=== PATIENT | female | born 1965 | race Caucasian/White ===

== ENCOUNTER → 2020-06-03 | Outpatient (CLI) | payer MEDICARE ==
[2020-06-04 08:14] LABS: VITAMIN D, 25-HYDROXY 16.9 ng/mL (30.0-100.0)
[2020-06-04 15:15] LABS: RHEUMATOID ARTHRITIS FACTOR <10.0 IU/mL (0.0-13.9)
[2020-06-08 00:11] LABS: CCP ANTIBODIES IGG/IGA 4 units (0-19)
== END ==
LOC: LAB 13:39
PROVIDERS: Nurse Practitioner Family
DX: D89.9 Disorder involving the immune mechanism, unspecified (principal); M25.50 Pain in unspecified joint; R76.8 Other specified abnormal immunological findings in serum; M79.10 Myalgia, unspecified site
CPT/HCPCS: 36415; 81001; 82550; 82570; 83520; 84156; 85652; 86140; 86200; 86431